=== PATIENT | female | born 1935 | race Caucasian/White ===

== ENCOUNTER 2019-08-21 07:17 | Inpatient (IN) ==
[2019-08-21] MEDS ORDERED: 0.9 % Sodium Chloride 500 ML ONE ×4 (07:43→10:48)
[2019-08-21] MEDS ORDERED: Heparin 1,000 UNITS/500 mL 500 ML ONE (07:43)
[2019-08-21] MEDS ORDERED: DOXOrubicin HCL 200 MG/100 ML MLS IVP SCH ×4 (08:00)
[2019-08-21] MEDS ORDERED: *HR* Midazolam HCl 2 MG/2 ML VIAL IVP ONE (08:01)
[2019-08-21] MEDS ORDERED: levoFLOXacin 500 MG/100 ML 500 MG/100 ML BAG IVPB ONE (08:01)
[2019-08-21] MEDS ORDERED: *HR* FentaNYL (PF) 100 MCG/2 ML VIAL IVP ONE (08:01)
[2019-08-21] MEDS ORDERED: Ondansetron 4 MG/2 ML VIAL IVP ONE (10:52)
[2019-08-21] MEDS ORDERED: Ondansetron 4 MG/2 ML VIAL ONE (10:53)
[2019-08-21] MEDS ORDERED: Isovue-300 50ML VIAL IVP ONE ×4 (11:25→11:26)
[2019-08-21] MEDS ORDERED: Ondansetron ODT 4 MG TAB.RAPDIS SL PRN (12:18)
[2019-08-21] MEDS ORDERED: Ondansetron 4 MG/2 ML VIAL IVP PRN (12:18)
[2019-08-21] MEDS ORDERED: *HR* OxyCODONE Immed Rel 5 MG TABLET PO PRN (12:18)
[2019-08-21] MEDS ORDERED: amLODIPine 5 MG TABLET PO SCH (13:15)
[2019-08-21 13:50] LABS: Basophils % 0.4 %; Eosinophils # 0.1 K/mcL (0.0-0.6); Eosinophils % 1.6 %; Hematocrit 35.5 % (35.3-44.9); Hemoglobin 11.8 g/dL (11.5-15.4); Immature Granulocytes % 0.7 % (0-4); Lymphocytes # 0.5 K/mcL (0.6-4.6); Lymphocytes % 10.2 %; Mean Corpuscular HGB Conc 33.2 g/dL (31.6-35.5); Mean Corpuscular Hemoglobin 32.7 pg (28.0-33.3); Mean Corpuscular Volume 98.3 fL (83.0-100.0); Mean Platelet Volume 9.5 fL (9.4-12.4); Monocytes # 0.4 K/mcL (0.0-1.3); Monocytes % 8.9 %; Neutrophils # 3.5 K/mcL (1.6-8.9); Platelet Count 149 K/mcL (140-400); Red Blood Count 3.61 M/mcL (3.82-4.97); Red Cell Distribution Width 12.9 % (11.5-14.5); Segmented Neutrophils % 78.2 %; White Blood Count 4.5 K/mcL (4.3-11.1)
[2019-08-21 13:57] LABS: Albumin 3.6 g/dL (3.5-5.7); Albumin/Globulin Ratio 1.4 (1.1-2.2); Bilirubin,Total 0.5 mg/dL (0.3-1.0); Calcium 8.7 mg/dL (8.6-10.3); Globulin 2.6 g/dL (2.4-3.5); Potassium 4.2 mEq/L (3.5-5.1); Total Protein 6.2 g/dL (6.4-8.9)
[2019-08-21] MEDS: Prochlorperazine 10 MG/2 ML VIAL IVP PRN ×2 (14:06→22:06)
[2019-08-21 14:19] LABS: INR 1.2
[2019-08-21] MEDS: amLODIPine 5 MG TABLET PO SCH (22:06)
[2019-08-21] MEDS ORDERED: Acetaminophen 325 MG TABLET PO ONE (22:33)
[2019-08-22] MEDS: Prochlorperazine 10 MG/2 ML VIAL IVP PRN (08:39)
[2019-08-22] MEDS ORDERED: Ondansetron ODT 4 MG TAB.RAPDIS SL PRN (11:59)
[2019-08-22 12:44] LABS: Basophils % 0.1 %; Eosinophils % 0.1 %; Hemoglobin 12.6 g/dL (11.5-15.4); Immature Granulocytes % 0.3 % (0-4); Lymphocytes # 0.5 K/mcL (0.6-4.6); Mean Corpuscular HGB Conc 34.1 g/dL (31.6-35.5); Mean Corpuscular Volume 96.9 fL (83.0-100.0); Mean Platelet Volume 9.7 fL (9.4-12.4); Monocytes # 1.2 K/mcL (0.0-1.3); Monocytes % 12.8 %; Platelet Count 150 K/mcL (140-400); Red Blood Count 3.82 M/mcL (3.82-4.97); Red Cell Distribution Width 12.9 % (11.5-14.5); Segmented Neutrophils % 80.7 %
[2019-08-22 12:47] LABS: Neutrophils # 7.3 K/mcL (1.6-8.9)
[2019-08-22] MEDS: Metoprolol XL (24 HR) Succ 50 MG TAB.ER.24H PO SCH (12:48)
[2019-08-22] MEDS: Aspirin 81 MG TAB.CHEW PO SCH (12:48)
[2019-08-22] MEDS: levoFLOXacin 250 MG TABLET PO SCH (12:49)
[2019-08-22] MEDS: clonazePAM 0.5 MG TABLET PO PRN (12:56)
[2019-08-22 13:06] LABS: Alanine Aminotransferase 132 Units/L (7-52); Albumin 3.8 g/dL (3.5-5.7); Albumin/Globulin Ratio 1.4 (1.1-2.2); Alkaline Phosphatase 72 Units/L (34-104); Aspartate Amino Transferase 179 Units/L (13-39); BUN/Creatinine Ratio 22 (6-26); Bilirubin,Total 0.6 mg/dL (0.3-1.0); Blood Urea Nitrogen 21 mg/dL (8-23); Calcium 9.1 mg/dL (8.6-10.3); Carbon Dioxide 26 mEq/L (23-29); Chloride 98 mEq/L (98-107); Globulin 2.7 g/dL (2.4-3.5); Glucose 142 mg/dL (70-105); Osmolality,Calculated 277 (280-300); Sodium 131 mEq/L (136-145); Total Protein 6.5 g/dL (6.4-8.9); eGFR For African Americans > 60 (> 60); eGFR For Non-African Americans 55 (> 60)
[2019-08-22] MEDS: amLODIPine 5 MG TABLET PO SCH (20:10)
[2019-08-23 03:46] LABS: Basophils % 0.2 %; Eosinophils % 0.1 %; Hematocrit 37.9 % (35.3-44.9); Hemoglobin 12.6 g/dL (11.5-15.4); Immature Granulocytes % 0.5 % (0-4); Lymphocytes # 0.6 K/mcL (0.6-4.6); Lymphocytes % 5.7 %; Mean Corpuscular HGB Conc 33.2 g/dL (31.6-35.5); Mean Corpuscular Hemoglobin 33.2 pg (28.0-33.3); Mean Corpuscular Volume 99.7 fL (83.0-100.0); Mean Platelet Volume 10.1 fL (9.4-12.4); Monocytes # 1.5 K/mcL (0.0-1.3); Monocytes % 14.5 %; Neutrophils # 8.2 K/mcL (1.6-8.9); Platelet Count 149 K/mcL (140-400); Red Cell Distribution Width 12.9 % (11.5-14.5); White Blood Count 10.4 K/mcL (4.3-11.1)
[2019-08-23 03:51] LABS: Alanine Aminotransferase 159 Units/L (7-52); Albumin 3.6 g/dL (3.5-5.7); Albumin/Globulin Ratio 1.3 (1.1-2.2); Alkaline Phosphatase 75 Units/L (34-104); Aspartate Amino Transferase 172 Units/L (13-39); BUN/Creatinine Ratio 19 (6-26); Bilirubin,Total 0.7 mg/dL (0.3-1.0); Blood Urea Nitrogen 20 mg/dL (8-23); Calcium 9.1 mg/dL (8.6-10.3); Carbon Dioxide 26 mEq/L (23-29); Chloride 98 mEq/L (98-107); Globulin 2.8 g/dL (2.4-3.5); Glucose 132 mg/dL (70-105); Osmolality,Calculated 278 (280-300); Potassium 4.1 mEq/L (3.5-5.1); Sodium 132 mEq/L (136-145); Total Protein 6.4 g/dL (6.4-8.9); eGFR For African Americans > 60 (> 60); eGFR For Non-African Americans 50 (> 60)
[2019-08-23] MEDS: Aspirin 81 MG TAB.CHEW PO SCH (08:19)
[2019-08-23] MEDS: Metoprolol XL (24 HR) Succ 50 MG TAB.ER.24H PO SCH (08:19)
[2019-08-23] MEDS: levoFLOXacin 250 MG TABLET PO SCH (08:19)
[2019-08-23] MEDS: amLODIPine 5 MG TABLET PO SCH (22:01)
[2019-08-24] MEDS: Aspirin 81 MG TAB.CHEW PO SCH (08:28)
[2019-08-24] MEDS: levoFLOXacin 250 MG TABLET PO SCH (08:28)
[2019-08-24] MEDS: Metoprolol XL (24 HR) Succ 50 MG TAB.ER.24H PO SCH (08:28)
[2019-08-24] MEDS: clonazePAM 0.5 MG TABLET PO PRN (08:32)
[2019-08-24 08:39] LABS: Hematocrit 35.7 % (35.3-44.9); Hemoglobin 11.9 g/dL (11.5-15.4); Mean Corpuscular HGB Conc 33.3 g/dL (31.6-35.5); Mean Corpuscular Hemoglobin 32.4 pg (28.0-33.3); Mean Corpuscular Volume 97.3 fL (83.0-100.0); Platelet Count 140 K/mcL (140-400); Red Blood Count 3.67 M/mcL (3.82-4.97); Red Cell Distribution Width 12.9 % (11.5-14.5); White Blood Count 8.5 K/mcL (4.3-11.1)
[2019-08-24 09:02] LABS: Albumin/Globulin Ratio 1.3 (1.1-2.2); Bilirubin,Total 0.6 mg/dL (0.3-1.0); Calcium 8.6 mg/dL (8.6-10.3); Globulin 2.3 g/dL (2.4-3.5); Potassium 4.2 mEq/L (3.5-5.1); Total Protein 5.3 g/dL (6.4-8.9)
[2019-08-24] MEDS ORDERED: 0.9 % Sodium Chloride 1,000 ML IVC SCH (10:15)
[2019-08-24] MEDS: *HR* Heparin 5,000 UNIT/ML VIAL SQ SCH (17:55)
[2019-08-24] MEDS: amLODIPine 5 MG TABLET PO SCH (21:43)
[2019-08-24] MEDS: Sennosides/Docusate Sodium TABLET PO SCH (23:00)
[2019-08-25] MEDS: *HR* Heparin 5,000 UNIT/ML VIAL SQ SCH ×2 (05:48→17:13)
[2019-08-25 06:41] LABS: Hematocrit 32.3 % (35.3-44.9); Hemoglobin 10.5 g/dL (11.5-15.4); Mean Corpuscular HGB Conc 32.5 g/dL (31.6-35.5); Mean Corpuscular Hemoglobin 32.4 pg (28.0-33.3); Mean Corpuscular Volume 99.7 fL (83.0-100.0); Mean Platelet Volume 9.7 fL (9.4-12.4); Platelet Count 123 K/mcL (140-400); Red Blood Count 3.24 M/mcL (3.82-4.97); Red Cell Distribution Width 12.8 % (11.5-14.5); White Blood Count 6.9 K/mcL (4.3-11.1)
[2019-08-25 06:59] LABS: Albumin 2.9 g/dL (3.5-5.7); Albumin/Globulin Ratio 1.3 (1.1-2.2); Bilirubin,Total 0.5 mg/dL (0.3-1.0); Globulin 2.2 g/dL (2.4-3.5); Total Protein 5.1 g/dL (6.4-8.9)
[2019-08-25] MEDS ORDERED: 0.9 % Sodium Chloride 1,000 ML ONE (08:15)
[2019-08-25] MEDS ORDERED: 0.9 % Sodium Chloride 1,000 ML IVC SCH ×2 (08:15→14:56)
[2019-08-25] MEDS: Sennosides/Docusate Sodium TABLET PO SCH ×2 (08:18→19:34)
[2019-08-25] MEDS: Metoprolol XL (24 HR) Succ 50 MG TAB.ER.24H PO SCH (08:18)
[2019-08-25] MEDS: levoFLOXacin 250 MG TABLET PO SCH (08:18)
[2019-08-25] MEDS: Aspirin 81 MG TAB.CHEW PO SCH (08:18)
[2019-08-25] MEDS: clonazePAM 0.5 MG TABLET PO PRN (08:20)
[2019-08-25 14:09] LABS: Bilirubin,Urine Negative (Negative); Blood,Urine Negative (Negative); Clarity,Urine Clear (Clear); Color,Urine Yellow (Yellow); Glucose,Urine (UA) Normal (Normal); Ketones,Urine Negative (Negative); Leukocyte Esterase,Urine Negative (Negative); Nitrite,Urine Negative (Negative); PH,Urine 5.5 pH Units (5.0-8.0); Protein,Urine Trace mg/dL (Neg-Trace); Urobilinogen,Urine Normal (Normal)
[2019-08-25] MEDS: amLODIPine 5 MG TABLET PO SCH (19:34)
[2019-08-26 06:18] LABS: Hematocrit 32.4 % (35.3-44.9); Hemoglobin 10.7 g/dL (11.5-15.4); Mean Corpuscular Hemoglobin 32.3 pg (28.0-33.3); Mean Corpuscular Volume 97.9 fL (83.0-100.0); Platelet Count 144 K/mcL (140-400); Red Blood Count 3.31 M/mcL (3.82-4.97); Red Cell Distribution Width 12.7 % (11.5-14.5); White Blood Count 5.6 K/mcL (4.3-11.1)
[2019-08-26 06:33] LABS: Albumin/Globulin Ratio 1.2 (1.1-2.2); Bilirubin,Total 0.5 mg/dL (0.3-1.0); Calcium 8.3 mg/dL (8.6-10.3); Globulin 2.5 g/dL (2.4-3.5); Potassium 3.9 mEq/L (3.5-5.1); Total Protein 5.5 g/dL (6.4-8.9)
[2019-08-26] MEDS: Sennosides/Docusate Sodium TABLET PO SCH ×2 (08:22→20:33)
[2019-08-26] MEDS: Aspirin 81 MG TAB.CHEW PO SCH (08:22)
[2019-08-26] MEDS: levoFLOXacin 250 MG TABLET PO SCH (08:22)
[2019-08-26] MEDS: Metoprolol XL (24 HR) Succ 50 MG TAB.ER.24H PO SCH (08:22)
[2019-08-26] MEDS: clonazePAM 0.5 MG TABLET PO PRN (08:26)
[2019-08-26] MEDS ORDERED: Acetaminophen 325 MG TABLET PO ONE (13:38)
[2019-08-26] MEDS: amLODIPine 5 MG TABLET PO SCH (20:32)
[2019-08-27] MEDS: Aspirin 81 MG TAB.CHEW PO SCH (08:59)
[2019-08-27] MEDS: Metoprolol XL (24 HR) Succ 50 MG TAB.ER.24H PO SCH (09:00)
[2019-08-27] MEDS: levoFLOXacin 250 MG TABLET PO SCH (09:00)
[2019-08-27] MEDS: Sennosides/Docusate Sodium TABLET PO SCH (09:00)
[2019-08-27] MEDS: clonazePAM 0.5 MG TABLET PO PRN (09:04)
[2019-08-27] MEDS: amLODIPine 5 MG TABLET PO SCH (20:31)
[2019-08-28 06:08] LABS: Hematocrit 30.8 % (35.3-44.9); Mean Corpuscular HGB Conc 32.5 g/dL (31.6-35.5); Mean Corpuscular Volume 101.7 fL (83.0-100.0); Mean Platelet Volume 10.8 fL (9.4-12.4); Platelet Count 127 K/mcL (140-400); Red Blood Count 3.03 M/mcL (3.82-4.97); Red Cell Distribution Width 12.7 % (11.5-14.5); White Blood Count 5.9 K/mcL (4.3-11.1)
[2019-08-28 06:31] LABS: Albumin 2.9 g/dL (3.5-5.7); Albumin/Globulin Ratio 1.1 (1.1-2.2); Bilirubin,Total 0.7 mg/dL (0.3-1.0); Calcium 8.5 mg/dL (8.6-10.3); Globulin 2.7 g/dL (2.4-3.5); Potassium 4.1 mEq/L (3.5-5.1); Total Protein 5.6 g/dL (6.4-8.9)
[2019-08-28 07:17] VITALS: BP 121/62
[2019-08-28] MEDS: Aspirin 81 MG TAB.CHEW PO SCH (08:36)
[2019-08-28] MEDS: Metoprolol XL (24 HR) Succ 50 MG TAB.ER.24H PO SCH (08:36)
[2019-08-28] MEDS: levoFLOXacin 250 MG TABLET PO SCH (08:36)
[2019-08-28] MEDS ORDERED: clonazePAM 0.5 MG TABLET PO SCH (09:00)
== END 2019-08-28 14:42 | DRG 436 ==
LOC: LAB 07:17 → 3BNU 07:17
PROVIDERS: ADMIT Internal Medicine; ATTEND Internal Medicine

== ENCOUNTER 2021-03-02 18:16 | Inpatient (IN) ==
[2021-03-02] MEDS ORDERED: Ondansetron 4 MG/2 ML VIAL IVP ONE (18:41)
[2021-03-02] MEDS ORDERED: 0.9 % Sodium Chloride 500 ML IVC PRN (18:42)
[2021-03-02 18:52] LABS: Eosinophils % 1.3 %; Hematocrit 35.3 % (35.3-44.9); Hemoglobin 11.4 g/dL (11.5-15.4); Immature Granulocytes % 0.7 % (0-4); Lymphocytes # 0.5 K/mcL (0.6-4.6); Lymphocytes % 16.6 %; Mean Corpuscular HGB Conc 32.3 g/dL (31.6-35.5); Mean Corpuscular Hemoglobin 28.7 pg (28.0-33.3); Mean Corpuscular Volume 88.9 fL (83.0-100.0); Mean Platelet Volume 9.8 fL (9.4-12.4); Monocytes # 0.3 K/mcL (0.0-1.3); Monocytes % 10.3 %; Neutrophils # 2.1 K/mcL (1.6-8.9); Platelet Count 124 K/mcL (140-400); Red Blood Count 3.97 M/mcL (3.82-4.97); Red Cell Distribution Width 16.3 % (11.5-14.5); Segmented Neutrophils % 70.1 %
[2021-03-02 19:08] LABS: Anisocytosis 1+ (Not Present); Reactive Lymphocytes Present (Not Present)
[2021-03-02 19:09] LABS: Platelet Estimate Decreased (Normal)
[2021-03-02 19:58] LABS: Alanine Aminotransferase 99 Units/L (7-52); Albumin 3.4 g/dL (3.5-5.7); Albumin/Globulin Ratio 0.9 (1.1-2.2); Alkaline Phosphatase 136 Units/L (34-104); Aspartate Amino Transferase 145 Units/L (13-39); BUN/Creatinine Ratio 36 (6-26); Bilirubin,Total 1.4 mg/dL (0.3-1.0); Blood Urea Nitrogen 41 mg/dL (8-23); Carbon Dioxide 20 mEq/L (23-29); Chloride 95 mEq/L (98-107); Globulin 3.7 g/dL (2.4-3.5); Glucose 129 mg/dL (70-105); Lipase 17 Units/L (11-82); Osmolality,Calculated 280 (280-300); Potassium 4.3 mEq/L (3.5-5.1); Sodium 129 mEq/L (136-145); Total Protein 7.1 g/dL (6.4-8.9); Troponin I < 0.03 ng/mL (< 0.04); eGFR For African Americans 56 (> 60); eGFR For Non-African Americans 46 (> 60)
[2021-03-02 20:49] LABS: Bilirubin,Urine Moderate (Negative); Blood,Urine Trace (Negative); Clarity,Urine Clear (Clear); Color,Urine Light-Orange (Yellow); Glucose,Urine (UA) Normal (Normal); Hyaline Casts,Urine Few per lpf (None Seen); Ketones,Urine Trace mg/dL (Negative); Leukocyte Esterase,Urine Trace (Negative); Mucus,Urine Few per lpf (None-Few); Nitrite,Urine Negative (Negative); Protein,Urine 200 mg/dL (Neg-Trace); RBC,Urine 0-3 per hpf (0-3); Specific Gravity,Urine 1.026 (1.010-1.025); Squamous Epithelial Cell,Urine Few per hpf (None-Few)
[2021-03-02] MEDS ORDERED: amLODIPine 5 MG TABLET PO ONE (21:45)
[2021-03-02] MEDS ORDERED: amLODIPine 5 MG TABLET ONE (21:56)
[2021-03-02] MEDS ORDERED: Naloxone 0.4 MG/ML INJ IVP PRN (23:39)
[2021-03-02] MEDS ORDERED: Ondansetron 4 MG/2 ML VIAL IVP PRN (23:39)
[2021-03-03 01:10] LABS: Eosinophils % 0.7 %; Hematocrit 35.3 % (35.3-44.9); Hemoglobin 11.3 g/dL (11.5-15.4); Immature Granulocytes % 0.3 % (0-4); Lymphocytes # 0.4 K/mcL (0.6-4.6); Lymphocytes % 14.3 %; Mean Corpuscular Volume 90.5 fL (83.0-100.0); Mean Platelet Volume 9.8 fL (9.4-12.4); Monocytes # 0.3 K/mcL (0.0-1.3); Monocytes % 10.7 %; Neutrophils # 2.2 K/mcL (1.6-8.9); Platelet Count 120 K/mcL (140-400); Red Cell Distribution Width 16.6 % (11.5-14.5)
[2021-03-03 01:12] LABS: Platelet Estimate Decreased (Normal); Reactive Lymphocytes Present (Not Present)
[2021-03-03 01:17] LABS: INR 1.3; Prothrombin Time 14.5 Seconds (9.4-12.1)
[2021-03-03 01:44] LABS: Alanine Aminotransferase 96 Units/L (7-52); Albumin 3.2 g/dL (3.5-5.7); Albumin/Globulin Ratio 0.9 (1.1-2.2); Alkaline Phosphatase 133 Units/L (34-104); Aspartate Amino Transferase 142 Units/L (13-39); BUN/Creatinine Ratio 38 (6-26); Bilirubin,Total 1.3 mg/dL (0.3-1.0); Blood Urea Nitrogen 39 mg/dL (8-23); Calcium 8.7 mg/dL (8.6-10.3); Carbon Dioxide 20 mEq/L (23-29); Chloride 95 mEq/L (98-107); Globulin 3.5 g/dL (2.4-3.5); Glucose 107 mg/dL (70-105); Magnesium 1.8 mg/dL (1.6-2.6); Osmolality,Calculated 282 (280-300); Potassium 4.1 mEq/L (3.5-5.1); Sodium 131 mEq/L (136-145); Total Protein 6.7 g/dL (6.4-8.9); eGFR For African Americans > 60 (> 60); eGFR For Non-African Americans 50 (> 60)
[2021-03-03] MEDS: 0.9 % Sodium Chloride 1,000 ML IVC SCH ×2 (03:31→13:33)
[2021-03-03] MEDS: Metoprolol XL (24 HR) Succ 50 MG TAB.ER.24H PO SCH (08:57)
[2021-03-03] MEDS: clonazePAM 0.5 MG TABLET PO SCH (08:57)
[2021-03-03] MEDS: amLODIPine 5 MG TABLET PO SCH (16:47)
[2021-03-04 07:50] LABS: BUN/Creatinine Ratio 34 (6-26); Blood Urea Nitrogen 31 mg/dL (8-23); Calcium 8.2 mg/dL (8.6-10.3); Carbon Dioxide 21 mEq/L (23-29); Chloride 101 mEq/L (98-107); Glucose 168 mg/dL (70-105); Osmolality,Calculated 280 (280-300); Potassium 4.2 mEq/L (3.5-5.1); Sodium 130 mEq/L (136-145); eGFR For African Americans > 60 (> 60); eGFR For Non-African Americans 60 (> 60)
[2021-03-04] MEDS: clonazePAM 0.5 MG TABLET PO SCH (08:57)
[2021-03-04] MEDS: Metoprolol XL (24 HR) Succ 50 MG TAB.ER.24H PO SCH (08:57)
[2021-03-04] MEDS: amLODIPine 5 MG TABLET PO SCH (16:22)
[2021-03-04] MEDS ORDERED: Simethicone 80 MG TAB.CHEW PO PRN (18:05)
[2021-03-04] MEDS: *HR* Heparin 5,000 UNIT/ML VIAL SQ SCH (21:15)
[2021-03-05] MEDS: *HR* Heparin 5,000 UNIT/ML VIAL SQ SCH ×2 (05:44→17:42)
[2021-03-05 07:48] LABS: Hematocrit 35.2 % (35.3-44.9); Hemoglobin 10.8 g/dL (11.5-15.4); Mean Corpuscular HGB Conc 30.7 g/dL (31.6-35.5); Mean Corpuscular Hemoglobin 29.1 pg (28.0-33.3); Mean Corpuscular Volume 94.9 fL (83.0-100.0); Mean Platelet Volume 10.2 fL (9.4-12.4); Platelet Count 122 K/mcL (140-400); Red Blood Count 3.71 M/mcL (3.82-4.97); Red Cell Distribution Width 17.3 % (11.5-14.5)
[2021-03-05 07:50] LABS: White Blood Count 6.1 K/mcL (4.3-11.1)
[2021-03-05 08:06] LABS: Albumin 2.7 g/dL (3.5-5.7); Albumin/Globulin Ratio 0.9 (1.1-2.2); Bilirubin,Total 1.2 mg/dL (0.3-1.0); Calcium 8.3 mg/dL (8.6-10.3); Globulin 3.1 g/dL (2.4-3.5); Potassium 4.5 mEq/L (3.5-5.1); Total Protein 5.8 g/dL (6.4-8.9)
[2021-03-05] MEDS: Metoprolol XL (24 HR) Succ 50 MG TAB.ER.24H PO SCH (10:16)
[2021-03-05] MEDS: clonazePAM 0.5 MG TABLET PO SCH (10:16)
[2021-03-05] MEDS: 0.9 % Sodium Chloride 1,000 ML IVC SCH (14:02)
[2021-03-05] MEDS: amLODIPine 5 MG TABLET PO SCH (17:42)
[2021-03-06] MEDS: 0.9 % Sodium Chloride 1,000 ML IVC SCH (03:12)
[2021-03-06] MEDS: *HR* Heparin 5,000 UNIT/ML VIAL SQ SCH ×2 (05:32→17:47)
[2021-03-06 10:16] LABS: Hematocrit 39.2 % (35.3-44.9); Mean Corpuscular HGB Conc 30.6 g/dL (31.6-35.5); Mean Corpuscular Hemoglobin 27.8 pg (28.0-33.3); Mean Platelet Volume 9.1 fL (9.4-12.4); Platelet Count 211 K/mcL (140-400); Red Blood Count 4.31 M/mcL (3.82-4.97); Red Cell Distribution Width 17.2 % (11.5-14.5); White Blood Count 8.6 K/mcL (4.3-11.1)
[2021-03-06 10:28] LABS: Alanine Aminotransferase 80 Units/L (7-52); Albumin 2.9 g/dL (3.5-5.7); Albumin/Globulin Ratio 0.8 (1.1-2.2); Alkaline Phosphatase 115 Units/L (34-104); Aspartate Amino Transferase 130 Units/L (13-39); BUN/Creatinine Ratio 42 (6-26); Bilirubin,Total 1.3 mg/dL (0.3-1.0); Blood Urea Nitrogen 41 mg/dL (8-23); Calcium 8.3 mg/dL (8.6-10.3); Carbon Dioxide 18 mEq/L (23-29); Chloride 104 mEq/L (98-107); Globulin 3.6 g/dL (2.4-3.5); Glucose 112 mg/dL (70-105); Magnesium 1.8 mg/dL (1.6-2.6); Osmolality,Calculated 287 (280-300); Potassium 4.3 mEq/L (3.5-5.1); Sodium 133 mEq/L (136-145); Total Protein 6.5 g/dL (6.4-8.9); eGFR For African Americans > 60 (> 60); eGFR For Non-African Americans 55 (> 60)
[2021-03-06] MEDS: clonazePAM 0.5 MG TABLET PO SCH (10:36)
[2021-03-06] MEDS: Metoprolol XL (24 HR) Succ 50 MG TAB.ER.24H PO SCH (10:36)
[2021-03-06] MEDS: amLODIPine 5 MG TABLET PO SCH (17:47)
[2021-03-07] MEDS: *HR* Heparin 5,000 UNIT/ML VIAL SQ SCH ×2 (05:38→16:29)
[2021-03-07 05:45] LABS: Hematocrit 35.9 % (35.3-44.9); Hemoglobin 11.2 g/dL (11.5-15.4); Mean Corpuscular HGB Conc 31.2 g/dL (31.6-35.5); Mean Corpuscular Hemoglobin 28.9 pg (28.0-33.3); Mean Corpuscular Volume 92.5 fL (83.0-100.0); Mean Platelet Volume 9.2 fL (9.4-12.4); Platelet Count 176 K/mcL (140-400); Red Blood Count 3.88 M/mcL (3.82-4.97); Red Cell Distribution Width 17.4 % (11.5-14.5); White Blood Count 8.4 K/mcL (4.3-11.1)
[2021-03-07 06:00] LABS: Alanine Aminotransferase 70 Units/L (7-52); Albumin 2.7 g/dL (3.5-5.7); Albumin/Globulin Ratio 0.8 (1.1-2.2); Alkaline Phosphatase 112 Units/L (34-104); Aspartate Amino Transferase 113 Units/L (13-39); BUN/Creatinine Ratio 45 (6-26); Bilirubin,Total 1.3 mg/dL (0.3-1.0); Blood Urea Nitrogen 41 mg/dL (8-23); Calcium 8.5 mg/dL (8.6-10.3); Carbon Dioxide 16 mEq/L (23-29); Chloride 105 mEq/L (98-107); Globulin 3.4 g/dL (2.4-3.5); Glucose 113 mg/dL (70-105); Osmolality,Calculated 287 (280-300); Potassium 4.4 mEq/L (3.5-5.1); Sodium 133 mEq/L (136-145); Total Protein 6.1 g/dL (6.4-8.9); eGFR For African Americans > 60 (> 60); eGFR For Non-African Americans 58 (> 60)
[2021-03-07] MEDS: clonazePAM 0.5 MG TABLET PO SCH (09:24)
[2021-03-07] MEDS: Metoprolol XL (24 HR) Succ 50 MG TAB.ER.24H PO SCH (09:25)
[2021-03-07] MEDS ORDERED: Sennosides/Docusate Sodium TABLET PO PRN (09:35)
[2021-03-07] MEDS: 0.9 % Sodium Chloride 1,000 ML IVC SCH (14:29)
[2021-03-07] MEDS: amLODIPine 5 MG TABLET PO SCH (16:30)
[2021-03-07] MEDS ORDERED: polyethylene glycoL 3350 17 GM POWD.PACK PO ONE (23:34)
[2021-03-08] MEDS: *HR* Heparin 5,000 UNIT/ML VIAL SQ SCH ×2 (05:16→17:19)
[2021-03-08 05:19] LABS: Hematocrit 34.4 % (35.3-44.9); Hemoglobin 10.9 g/dL (11.5-15.4); Mean Corpuscular HGB Conc 31.7 g/dL (31.6-35.5); Mean Corpuscular Hemoglobin 28.5 pg (28.0-33.3); Mean Corpuscular Volume 90.1 fL (83.0-100.0); Mean Platelet Volume 9.2 fL (9.4-12.4); Platelet Count 194 K/mcL (140-400); Red Blood Count 3.82 M/mcL (3.82-4.97); Red Cell Distribution Width 17.2 % (11.5-14.5); White Blood Count 7.4 K/mcL (4.3-11.1)
[2021-03-08 05:37] LABS: BUN/Creatinine Ratio 46 (6-26); Blood Urea Nitrogen 41 mg/dL (8-23); Calcium 8.5 mg/dL (8.6-10.3); Carbon Dioxide 19 mEq/L (23-29); Chloride 107 mEq/L (98-107); Glucose 107 mg/dL (70-105); Osmolality,Calculated 289 (280-300); Potassium 4.3 mEq/L (3.5-5.1); Sodium 134 mEq/L (136-145); eGFR For African Americans > 60 (> 60); eGFR For Non-African Americans 60 (> 60)
[2021-03-08] MEDS: clonazePAM 0.5 MG TABLET PO SCH (08:14)
[2021-03-08] MEDS: Metoprolol XL (24 HR) Succ 50 MG TAB.ER.24H PO SCH (08:14)
[2021-03-08] MEDS: 0.9 % Sodium Chloride 1,000 ML IVC SCH (11:33)
[2021-03-08] MEDS: amLODIPine 5 MG TABLET PO SCH (17:19)
[2021-03-09] MEDS: *HR* Heparin 5,000 UNIT/ML VIAL SQ SCH (05:17)
[2021-03-09] MEDS: Metoprolol XL (24 HR) Succ 50 MG TAB.ER.24H PO SCH (07:51)
[2021-03-09] MEDS: 0.9 % Sodium Chloride 1,000 ML IVC SCH (07:52)
[2021-03-09] MEDS: clonazePAM 0.5 MG TABLET PO SCH (07:52)
[2021-03-09 08:29] LABS: Hematocrit 40.2 % (35.3-44.9); Mean Corpuscular HGB Conc 31.3 g/dL (31.6-35.5); Mean Corpuscular Hemoglobin 28.7 pg (28.0-33.3); Mean Corpuscular Volume 91.6 fL (83.0-100.0); Mean Platelet Volume 8.9 fL (9.4-12.4); Platelet Count 249 K/mcL (140-400); Red Blood Count 4.39 M/mcL (3.82-4.97); Red Cell Distribution Width 17.3 % (11.5-14.5); White Blood Count 9.6 K/mcL (4.3-11.1)
[2021-03-09 08:30] LABS: Hemoglobin 12.6 g/dL (11.5-15.4)
[2021-03-09 08:44] LABS: Alanine Aminotransferase 67 Units/L (7-52); Albumin 3.1 g/dL (3.5-5.7); Albumin/Globulin Ratio 0.7 (1.1-2.2); Alkaline Phosphatase 128 Units/L (34-104); Aspartate Amino Transferase 97 Units/L (13-39); BUN/Creatinine Ratio 43 (6-26); Bilirubin,Total 1.4 mg/dL (0.3-1.0); Blood Urea Nitrogen 37 mg/dL (8-23); Calcium 9.1 mg/dL (8.6-10.3); Carbon Dioxide 17 mEq/L (23-29); Chloride 107 mEq/L (98-107); Globulin 4.2 g/dL (2.4-3.5); Glucose 105 mg/dL (70-105); Osmolality,Calculated 289 (280-300); Potassium 4.4 mEq/L (3.5-5.1); Sodium 135 mEq/L (136-145); Total Protein 7.3 g/dL (6.4-8.9); eGFR For African Americans > 60 (> 60); eGFR For Non-African Americans > 60 (> 60)
[2021-03-09 14:37] VITALS: BP 142/79
== END 2021-03-09 18:37 | DRG 436 ==
LOC: EMEROOARM 18:16 → 3ANU 18:16 → SUATTDRO 22:39 → 3ANU 23:52 → SUATTDRO 03-03 15:14
PROVIDERS: ADMIT Student in an Organized Health Care Education/Training Program; ATTEND Internal Medicine